=== PATIENT | male | born 1980 | race Two or more races ===

== ENCOUNTER 2020-08-19 05:10 | Day surgery (SDC) | payer OTHER ==
[~2020-08-19 05:10] MED LIST: ATACAND32 MG PO; MESALAMINE800 MG PO; MILLIPRED5 MG PO
[2020-08-19] MEDS ORDERED: RECTICARE30 GM TOP (09:16)
[2020-08-19] MEDS ORDERED: PERCOCET 5-3251 EACH PO (09:16)
[2020-08-19] MEDS ORDERED: DERMOPLAST PAIN78 GM TOP (09:17)
== END 2020-08-19 14:50 | disposition home or self-care (01) ==
LOC: CIR.AMB 05:10
PROVIDERS: ATTEND Surgery
DX: K60.3 Anal fistula (principal); Z20.828 Contact with and (suspected) exposure to other viral communicable diseases

== ENCOUNTER → 2020-11-05 | Outpatient (CLI) | payer OTHER ==
[~2020-11-05] MED LIST changes: +DERMOPLAST PAIN78 GM TOP; +PERCOCET 5-3251 EACH PO; +RECTICARE30 GM TOP
== END | disposition home or self-care (01) ==
LOC: PPH VACUNA
DX: Z23 Encounter for immunization (principal)